=== PATIENT | female | born 2000 | race Caucasian/White ===

== ENCOUNTER 2022-05-10 04:56 | Emergency (ER) | payer BC ==
[2022-05-10 05:58] LABS: CARBON DIOXIDE,CO2 25.4 mmol/L (21.0-32.0); POTASSIUM,K 3.6 mmol/L (3.5-5.1)
[2022-05-10] MEDS ORDERED: Ketorolac 30 MG/ML SDV IVPUSH ONE (06:15)
[2022-05-10] MEDS ORDERED: Ondansetron 4 MG/2 ML SDV IVPUSH ONE (06:15)
[2022-05-10] MEDS ORDERED: Sodium Chloride 0.9% 1,000 ML IV ONE (06:24)
[2022-05-10] MEDS ORDERED: Iopamidol 755 MG/ML 500 ML Multipack Bottle IVPUSH STA (06:58)
== END 2022-05-10 08:34 | disposition home or self-care (01) ==
LOC: MW.ED 04:56
DX: K52.9 Noninfective gastroenteritis and colitis, unspecified (principal); Z88.8 Allergy status to other drugs, medicaments and biological substances
CPT/HCPCS: 36415; 74177; 80053; 81001; 81025; 85025; 96361; 96374; 96375; 99284; J1885; J2405; J7030; Q9967